=== PATIENT | female | born 1965 | race Caucasian/White ===

== ENCOUNTER 2017-01-11 11:05 | Emergency (ER) | payer OTHER ==
[~2017-01-11] VITALS: Ht 157.5 cm; Wt 81.5 kg
[2017-01-11 11:10] VITALS: Ht 157.5 cm; Wt 81.5 kg
[2017-01-11] MEDS ORDERED: IBUPROFEN 600 MG TAB PO ONE (11:30)
--- NOTE | 2017-01-11 12:25 | RADRPT ---
PROCEDURE: XR Hand. CLINICAL INDICATION: Hand pain. TECHNIQUE: Three views of the left hand were obtained. COMPARISON: No prior studies are available for comparison. FINDINGS: No acute fracture or dislocation is noted. Bone mineralization is normal. No significant soft tissue swelling is seen. IMPRESSION: 1. No acute fracture or dislocation is seen. RPTAT: JJ .Angie Ferrara MD, Date Time Electronically viewed and signed by .Angie Ferrara MD, on 01/11/2017 12:24 .N/
--- NOTE | 2017-01-11 12:26 | RADRPT ---
PROCEDURE: XR Wrist. CLINICAL INDICATION: Left wrist pain TECHNIQUE: AP, lateral and oblique views of the left wrist were performed. COMPARISON: No prior studies are available for comparison. FINDINGS: No evidence of fracture, dislocation, or subluxation is seen. The bones appear well mineralized. The joint spaces are well preserved. No significant soft tissue swelling is present. There is no radiop aque foreign body. IMPRESSION: 1. No acute fracture or dislocation. RPTAT: JJ .Angie Ferrara MD, Date Time Electronically viewed and signed by .Angie Ferrara MD, on 01/11/2017 12:25 .N/
[2017-01-11] MEDS ORDERED: IBUP-1542 PO (12:33)
--- NOTE | 2017-01-11 12:36 | ERD ---
ER Documentation Chief Complaint Date/Time DATE: 01/11/17 TIME: 12:34 Chief Complaint Left hand pain with swelling after a fall HPI Patient is a 51-year-old female who yesterday when she was in the shower had a mechanical fall and landed on her left hand and now has left hand and wrist pain. She took anti-inflammatories at home which help. Denies any numbness or tingling. Denies any head injury, neck pain or KO. ROS All systems reviewed and are negative except as per history of present illness. Medications Home Meds Active Scripts Ibuprofen* (Motrin*) 600 Mg Tab, 600 MG PO Q6, #30 TAB Prov:NAYLORFABIO WADDELL PA-C 01/11/17 Allergies Allergies: Coded Allergies: No Known Allergy (Unverified , 01/11/17) PMhx/Soc Medical and Surgical Hx: pt denies Medical Hx, pt denies Surgical Hx Hx Alcohol Use: No Hx Substance Use: No Smoking Status: Never smoker FmHx Family History: No diabetes Physical Exam Vitals Vital Signs Date Time Temp Pulse Resp B/P Pulse Ox O2 Delivery O2 Flow Rate FiO2 01/11/17 11:10 98.6 84 20 111/69 97 Physical Exam General: well developed, well nourished, alert, nontoxic, no distress Head: normocephalic, atraumatic Neck: Supple, nontender, no lymphadenopathy, no midline tenderness Respiratory: Clear to auscaultation bilaterally, speaks in full sentences, no use of accesory muscles or labored breathing, no rales, ronchi, or wheezing Cardiovascular: RRR, No murmurs Back: no midline tenderness, no step offs or bony abnormalities, sensation to light touch in tact Extremities: Mild swelling over the dorsal surface of the left hand, no bony abnormalities, no snuffbox tenderness, able to make a fist, capillary refill less than 2 seconds, sensation to light touch is intact throughout, radial pulses 2+ Results 24 hrs Current Medications Medications (Trade) Dose Ordered Sig/Tam Route PRN Reason Start Time Stop Time Status Last Admin Dose Admin Ibuprofen (Motrin) 600 mg ONCE ONCE PO 01/11/17 11:30 01/11/17 11:31 DC 01/11/17 11:28 Procedures/MDM Patient has left hand and wrist pain after mechanical fall last night. She is neurovascular intact. X-rays were negative. She was given anti-inflammatory prescription and placed in a Velcro splint for comfort. Recommended this patient follow up with her primary care doctor within 48 hours or return to the emergency room for any worsening of symptoms. However this time I do believe there is suitable for outpatient management. I answered all their questions and they agreed with the plan and were discharged home. Departure Diagnosis: Primary Impression: Wrist sprain Condition: Stable Patient Instructions: Wrist Sprain Additional Instructions: Llame al doctor ERASTO y liz alcides SILVESTRE PARA DENTRO DE 1-2 ZAVALA.Dgale a la secretaria que nosotros le instruimos hacer esta silvestre.Avise o llame si alston condicin se empeora antes de la silvestre. Regresa aqui si peor o no mejor. FABIO NAYLOR PA-C Jan 11, 2017 12:35
== END 2017-01-11 13:52 | disposition home or self-care (01) ==
LOC: FTE 11:05
DX: S63.502A Unspecified sprain of left wrist, initial encounter (principal); W18.2XXA Fall in (into) shower or empty bathtub, initial encounter; Y92.9 Unspecified place or not applicable
CPT/HCPCS: 29125; 73110; 73130; Z7610